=== PATIENT | female | born 1965 | race Caucasian/White ===

== ENCOUNTER 2017-01-15 01:49 | Inpatient (IN) | payer MEDICAID ==
[2017-01-15 03:53] VITALS: BP 98/55
[2017-01-15 05:10] LABS: % EOSINOPHILS 1.4 % (0.0-5.0); % LYMPHOCYTES 26.1 % (20.0-50.0); % MONOCYTES 8.5 % (2.0-10.0); HEMATOCRIT 37.7 % (35.0-45.0); HEMOGLOBIN 12.7 gm/dL (11.7-15.5); MEAN CELL VOLUME 83.8 fl (81-100); MEAN CORPUSCULAR HEMOGLOBIN 28.2 pg (27.0-31.0); MEAN CORPUSCULAR HGB CONC 33.6 pg (28.0-36.0); MEAN PLATELET VOLUME 9.2 fl; NEUTROPHILE ABSOLUTE 3.8 Th/cmm (1.8-8.0); PLATELET COUNT 177 Th/cmm (150-400); RED CELL DISTRIBUTION WIDTH 15.3 % (11.5-20.0)
[2017-01-15 07:01] LABS: ALB/GLOB RATIO 1.1 (1.0-1.8); ALKALINE PHOSPHATASE 105 U/L (34-104); ANION GAP 11.7 (7.0-16.0); BUN - UREA NITROGEN 16 mg/dL (7-25); BUN/CREATININE RATIO 14.5; CALCIUM SERUM 9.4 mg/dL (8.6-10.3); CARBON DIOXIDE 19.8 mEq/L (21.0-31.0); CHLORIDE 103 mEq/L (98-107); CREATININE - SERUM 1.1 mg/dL (0.6-1.2); DIGOXIN 0.9 ng/ml (0.8-2.0); GLUCOSE 211 mg/dL (70-105); POTASSIUM SERUM 3.5 mEq/L (3.5-5.1); SGOT 17 U/L (13-39); SGPT/ALT 14 U/L (7-52); SODIUM SERUM 131 mEq/L (136-145)
--- NOTE | 2017-01-15 17:40 | Consultation ---
DATE OF CONSULTATION: 01/15/2017 CARDIOLOGY CONSULT HISTORY OF PRESENT ILLNESS: This patient is seen on courtesy of Dr. Florinda Bruner as the patient is coming with CHF and short of breath. According to the history obtained from the patient that she was getting swelling over her both ankles, which are getting worse by the end of the day and also she was getting increasing short of breath. Usually, it will get worse over 3 days. She also started having cough when she was lying down or doing some activities, so she went to the Emergency Room. She initially went to the Emergency Room where the initial workup was done and shows that the patient is in CHF and having the cardiomyopathy. The patient is being admitted here for further management. PAST MEDICAL HISTORY: History of hypertension, diabetes mellitus, type 2, cardiomyopathy. PERSONAL HISTORY: Smoking one pack a day or more sometimes since age of 17. Alcohol socially. He smokes marijuana on every other day. She says that this is medicine marijuana for her nausea, vomiting and low appetite. ALLERGIES: CODEINE, LISINOPRIL AND MORPHINE. CARDIAC MEDICATIONS: She is on medications, but I am not sure whether she is taking all of them or not, compliance sounds very poor. She also says that she has some thyroid problem and also has history of atrial fibrillation. She has been taking some medications for that. PHYSICAL EXAMINATION: GENERAL: She is a 52-year-old female, not in any acute distress. VITAL SIGNS: Within normal range. Pulse is 91, blood pressure 120/71, mean is 87, respiration is 19, O2 sat 96%. HEENT: Normal. NECK: Supple. JVP is flat. No lymphadenopathy. Thyroid not palpable. Carotids are equally palpable bilaterally. CHEST: Clinically clear except there are some scattered rales at the bases. No rhonchi. CARDIOVASCULAR SYSTEM: PMI not palpable. Heart sounds are soft and distant. There is a holosystolic murmur is present, which is in the mitral area. No rub is appreciated. EXTREMITIES: No edema. Peripheral pulses are equal bilaterally. LABORATORY DATA: Lab work is also evaluated and showing that his CBC is normal. Chem-7, sodium is 131, glucose is 211. Hemoglobin A1c 8.5. BNP 336. Troponin 0.9. TSH is pending. Echo was showing also there is cardiomyopathy with dilated almost all the chambers, ejection fraction is low about 27%. Also, has global hypokinesia and mitral, aortic, tricuspid, and pulmonic valve regurgitation and also has moderate pulmonary hypertension. EKG, atrial fibrillation with controlled V.rate. A 12-lead EKG is not available. IMPRESSION: 1. Mild congestive heart failure, uncompensated, has systolic congestive heart failure. 2. Has global hypokinesia with ejection fraction 27%, all the chambers are dilated. Has moderate pulmonary hypertension. Mitral, aortic, tricuspid and pulmonic valve regurgitation. 3. History of drug abuse, especially marijuana, still smoking and has 33 years pack year. 4. Atrial fibrillation, chronic. PLAN: Control heart rate. I doubt any acute coronary syndrome but to be ruled out. This patient has cardiac risk factors for coronary artery disease, patient's age, female, smoking and hypertension. This patient is a candidate for AICD, but has to be free of drugs over 90 days period, therefore, the AICD could be considered for implantation. Present cardiac management is therapeutic management, okay to continue and we will get low dose of beta-hipolito. I will also get home meds to be reconciled. Further adjustment on the therapy and treatment as needed. Thank you very much Dr. Marie for your kind referral. I will follow along with you during her acute cardiac problem. JOB# [id number] AMRIK
[2017-01-15] MEDS ORDERED: Magnesium Hydroxide (MOM) 30 mL UDC PO PRN (17:57)
[2017-01-15] MEDS ORDERED: Maalox 30 mL Cup PO PRN (17:57)
[2017-01-15] MEDS: Diltiazem CD 120 mg 24H PO SCH (18:41)
--- NOTE | 2017-01-15 20:50 | History & Physical ---
ADMIT DATE: 01/15/2017 CHIEF COMPLAINT: Chest pain. HISTORY OF PRESENT ILLNESS: The patient is a 52-year-old white female, who initially presented to the ER at [facility] with complaint of chest pain, cough, dyspnea on exertion, and orthopnea for few days. The patient denies any nausea or vomiting. The patient denies other complaints. ALLERGIES: CODEINE, OPIATES, LISINOPRIL, and MORPHINE. PAST MEDICAL HISTORY: CHF, acute myocardial infarction, hypertension, and diabetes mellitus type 2. PAST SURGICAL HISTORY: x 3. SOCIAL HISTORY: Positive tobacco use. Denies alcohol use. Also smokes marijuana. REVIEW OF SYSTEMS: See history of present illness. PHYSICAL EXAMINATION: GENERAL: The patient is awake, alert, nontoxic in appearance. VITAL SIGNS: On admission, temperature 98.4, pulse 97, blood pressure 97/69, respiratory rate 12, O2 sat 98% on room air. HEENT: Normocephalic, atraumatic. Extraocular movements are intact. Oropharynx is clear. NECK: Supple. No thyromegaly. No lymphadenopathy. CARDIOVASCULAR: S1, S2. Irregular rhythm. RESPIRATORY: Clear. No wheezes or rhonchi. GASTROINTESTINAL: Soft, nontender, nondistended. Positive bowel sounds. GENITOURINARY: No CVA tenderness, no suprapubic tenderness.. BACK: No midline tenderness. EXTREMITIES: Equal pulses bilaterally. No cyanosis or clubbing. The patient 2+ pitting edema in bilateral extremities. SKIN: Negative. PSYCHIATRIC: Negative. NEUROLOGIC: Intact. Sensation is intact. Neurovascular is intact. Bilateral muscle strength grossly. LABORATORY DATA: On admission are as follows: Hematology: WBC 6.0, hemoglobin 12.7, hematocrit 37.7platelet count per labs, no left shift noted. Chemistry: Sodium 131, potassium 3.5, chloride per labs, bicarbonate 19, anion gap 11, BUN 16, creatinine 1, GFR is 55.9, glucose 211, hemoglobin A1c 8.5, calcium 9.4, total bilirubin 1.0, AST 17, ALT 14, alkaline phosphatase 105. Total protein 6.8, albumin 3.6, globulin 3.2, dig level 0.9. MICROBIOLOGY: No new microbiology results. RADIOLOGY: No new results. IMPRESSION: 1. Atrial fibrillation with rapid ventricular response. 2. Congestive heart failure. 3. History of acute myocardial infarction. 4. Hypertension. 5. Diabetes mellitus type 2. 6. Hyponatremia. 7. Hypoalbuminemia. 8. Hypothyroidism. PLAN: The patient admitted to ICU at [facility]. Cardiology consultation with Dr. Cindy Bruner. We will obtain ID consultation from Dr. Blanchard. Due for labs, consultation needed. JOB# [id number]
[2017-01-15] MEDS: INSULIN ASPART SLIDING SCALE 100 UNITS/ML UNIT SUBQ SCH (21:08)
[2017-01-15] MEDS ORDERED: Albuterol/Ipratropium Neb 3 ML AERS HHN PRN (22:34)
[2017-01-15] MEDS: guaiFENesin 200 MG/10 ML UDC PO PRN (22:45)
[2017-01-16] MEDS: guaiFENesin 200 MG/10 ML UDC PO PRN ×4 (04:18→21:54)
[2017-01-16 05:32] LABS: % BASOPHILS 0.8 % (0.0-2.0); % LYMPHOCYTES 24.8 % (20.0-50.0); % MONOCYTES 8.3 % (2.0-10.0); % NEUTROPHILS 65.1 % (40.0-80.0); HEMATOCRIT 35.6 % (35.0-45.0); MEAN CELL VOLUME 83.3 fl (81-100); MEAN CORPUSCULAR HGB CONC 33.6 pg (28.0-36.0); NEUTROPHILE ABSOLUTE 3.6 Th/cmm (1.8-8.0); PLATELET COUNT 178 Th/cmm (150-400); RED BLOOD COUNT 4.28 Mil/cmm (3.80-5.10); RED CELL DISTRIBUTION WIDTH 15.7 % (11.5-20.0); WHITE BLOOD COUNT 5.6 Th/cmm (4.8-10.8)
[2017-01-16 05:57] LABS: ANION GAP 9.3 (7.0-16.0); BUN - UREA NITROGEN 17 mg/dL (7-25); CALCIUM SERUM 9.1 mg/dL (8.6-10.3); CARBON DIOXIDE 22.8 mEq/L (21.0-31.0); CHLORIDE 103 mEq/L (98-107); GLUCOSE 171 mg/dL (70-105); POTASSIUM SERUM 4.1 mEq/L (3.5-5.1); SODIUM SERUM 131 mEq/L (136-145)
[2017-01-16] MEDS: INSULIN ASPART SLIDING SCALE 100 UNITS/ML UNIT SUBQ SCH ×4 (06:35→21:02)
[2017-01-16] MEDS: Diltiazem CD 120 mg 24H PO SCH (08:42)
[2017-01-16] MEDS: Nicotine 14 mg/24 hr Tdm TD SCH (08:45)
[2017-01-16] MEDS ORDERED: DILTIAZEM HCL 240 MG PO SCH (09:00)
--- NOTE | 2017-01-16 10:31 | Diagnostic Imaging Report ---
CHEST X-RAY: AP view INDICATION: CHF COMPARISON: None FINDINGS: Increased interstitial lung markings are noted. No focal consolidation or effusions. Cardiomegaly is noted. Degenerative changes of the spine are noted. IMPRESSION: Increased interstitial lung markings which may be chronic or represent a mild degree of congestion. No focal consolidation or evidence of pleural effusions. Cardiomegaly.
[2017-01-16] MEDS: Atorvastatin Calcium 10 MG TAB PO SCH (16:14)
[2017-01-16] MEDS: methylPREDNISolone SS 40 mg Vial IV SCH ×3 (17:44→21:12)
[2017-01-16] MEDS: Pantoprazole 40 mg/Packet PO SCH (17:44)
[2017-01-16] MEDS: Albuterol/Ipratropium Neb 3 ML AERS HHN SCH (19:06)
[2017-01-16] MEDS: Budesonide 0.5 Mg/2 mL Ud HHN SCH (19:07)
--- NOTE | 2017-01-16 23:27 | Admit Criteria Form ---
Admit Criteria Forms - Admit Criteria Diagnosis: ATRIAL FIBRILLATION Clinical Indications for Admission to Inpatient Care (Place 'X' for any and all applicable criteria): Admission indicated for ANY ONE of the following(1)(2)(3)(4)(5) : [ ]I. Myocardial ischemia [X ]II. Dyspnea or hypoxemia [ ]III. Hemodynamic instability [ ]IV. Heart failure (e.g., pulmonary edema) (7) [ ]V. New-onset (less than 48 hours) atrial fibrillation with high risk for causing complications secondary to comorbidities (eg, symptomatic heart failure) [ ]. Altered mental status [ ]VII. Syncope [ ]VIII. Patient has implantable cardioverter defibrillator that has fired more than once within past 24hr or needs immediate adjustment of settings that cannot be done other than in inpatient setting. (8) [ ]IX. Suspected accessory pathway (e.g., Lkhwk-Pbzbwimce-Swftq syndrome) on ECG [ ]X. Recent systemic thromboembolism (eg, stroke) [ ]XI. Medication toxicity (e.g., digitalis) causing arrhythmia(9) [ ]XII. Underlying medical condition that necessitates inpatient care (e.g., thyrotoxicosis, pneumonia) (10) [ ]XIII. Continuous ECG monitoring is required for condition causing arrhythmia (e.g., severe hyperkalemia, hypokalemia, acid-base disturbance).(11)(12)(13) [ ]XIV. Initiation of antiarrhythmic drug therapy is needed in patient at high risk of adverse effects as indicated by ANY ONE of the following: [ ]a) Significant structural heart disease (e.g., reduced ejection fraction, congenital heart disease, valvular heart disease) [ ]b) Prolonged QT interval [ ]c) Underlying sinus node or atrioventricular conduction disturbances [ ]d) Need for treatment with antiarrhythmic drugs that have significant proarrhythmic potential (e.g., dofetilide, sotalol, procainamide) [ ]e) Patient whose sinus rhythm has never been observed on ECG [ ]XV. Intolerable symptoms despite optimal outpatient treatment [ ]XVI. Elective or urgent cardioversion that cannot be performed on outpatient basis or during observation care. [A] (Use also Atrial Fibrillation: Observation Care ) as appropriate.(14) [ ]XVII.Contraindications and/or Inappropriate clinical situations for Observational Care in patients with Atrial Fibrillation, when ANY ONE of the following is required: [ ]a) Patient with High risk of cardiac embolism (e.g, patients with previous cardiac embolism, LVEF < 40%, age >75 and patients with prosthetic valve) 18 [ ]b) Patient with Moderate risk including DM patient, CAD and patient aged 65-75 18 [ ]c) Patient with any change in cardiac biomarker especially troponin should be managed as high risk in an inpatient setting 19 [ ]d) Physician judgement irrespective of ECG and other diagnostic findings 20 [ ]XVIII.General contraindications and/or Inappropriate clinical situations for Observational Care in patients with Atrial Fibrillation, when ANY ONE of the following is required: [ ]a) Prediction of prolongation of LOS based on ANY ONE of the following may be considered as a contraindication for observational care 2, 3, 4, 5, 6, 7, 8, 9, 10, 11 [ ]i) Age > 65 yrs. [ ]ii) Patient arriving by ambulance [ ]iii) Patient with high acuity [ ]iv) Patient requiring vital sign monitoring [ ]v) Patient on IV medication [ ]b) Systolic blood pressures 180mmHg 3,12 [ ]c) Patient with altered mental status including delirium and other alteration of consciousness3 [ ]d) Patient whose discharge disposition will be to a fci home or rehabilitation home should not be managed in Emergency Department Observation Unit. CMS rule requires 3 days hospital stay before such placement.3,13 [ ]e) Patient with failure to thrive due to broad array of etiologies 3,16,17 [ ]f) Inability to ambulate 3,14 Extended stay beyond goal length of stay may be needed for (1)(25)(26): [ ]a) Unstable comorbidities [ ]b) Persistently uncontrolled atrial fibrillation or other arrhythmias [ ]c) Acute thromboembolic event (e.g., stroke, limb ischemia) [ ]d) Need for inpatient attainment of full anticoagulation The original [employer] content created by [employer] has been revised. The portions of the content which have been revised are identified through the use of italic text or in bold, and [employer] [employer] has neither reviewed nor approved the modified material. All other unmodified content is copyright [employer] [employer]. Please see references footnoted in the original [employer] [facility] [facility] [employer] edition 2016 Admit Criteria Met?: Yes
--- NOTE | 2017-01-16 23:31 | Consultation ---
DATE OF CONSULTATION: 01/16/2017 REASON FOR CONSULTATION: Shortness of breath. CONSULT NOTE: This is a 52-year-old female who has multiple problems: 1.Congestive heart failure. 2.COPD. 3.Recurrent anxiety. 4.Substance abuse history and also has been not able to work with a history of hypertension. SYMPTOMS: The patient has got "flu-like symptoms," couple of days prior to coming to the hospital and came to the hospital, had lot of coughing, wheezing, some discolored sputum with vague chest discomfort. Subsequently, the symptoms did not improve. The patient came to the hospital. Denies of any fever or denied of any swelling of the legs, denied of any PND, orthopnea, etc. The patient is very actively smoking and also takes marijuana. PAST MEDICAL HISTORY: Hypertension, COPD and recurrent anxiety. ALLERGIES: CODEINE, lisinopril, morphine and smoking history more than [id number] smoker, still smokes 1 pack per day. Other past medical history includes hypertension, [place] and diabetes mellitus type 2. PAST SURGICAL HISTORY: Including surgical history including . PHYSICAL EXAMINATION: GENERAL: This is a middle-aged looking female, awake, alert, oriented, not in any acute distress. VITAL SIGNS: The patient's recorded vitals: Temperature is 97, heart rate is in 60s, blood pressure 95/64, saturation is in 90s on 2 liters. HEENT: Examination of the head is essentially unremarkable. Pupils appear to be equal and reacting to light. Conjunctivae are pink. Sclerae is white. Oral cavity shows small oropharyngeal opening, otherwise unremarkable. NECK: Very short. No nodes in the neck could be palpated. CHEST: Shows scattered wheezing with diminished air entry. HEART: Regular. ABDOMEN: Soft, nontender. EXTREMITIES: Shows lot of tied up ____ type of marking, poor pulsations and upper extremity shows possibly multiple areas of skin areas suggestive of possible drug abuse in the past. IMPRESSION: 1.The patient has acute asthmatic bronchitis, precipitating factor is not clear. 2.Underlying chronic obstructive pulmonary disease with active smoking. 3.Suspect obstructive sleep apnea syndrome with possibly pulmonary hypertension. PLANS AND SUGGESTIONS: Advised against smoking. Pros and cons discussed, we will go ahead and give aggressive inhalation treatment, inhale steroid. agree to with IV antibiotic and also get a 2D echo to see RVSP and ____ pressure and we will restart her diuretics six and see how she does and go from there. JOB# [id number]
[2017-01-17] MEDS: methylPREDNISolone SS 40 mg Vial IV SCH ×3 (05:50→20:46)
[2017-01-17] MEDS: INSULIN ASPART SLIDING SCALE 100 UNITS/ML UNIT SUBQ SCH ×4 (06:39→21:29)
[2017-01-17 07:18] LABS: AMPHETAMINE URINE POSITIVE (NEGATIVE); BARBITURATES URINE NEGATIVE (NEGATIVE)
[2017-01-17 07:19] LABS: METHADONE URINE NEGATIVE (NEGATIVE)
[2017-01-17 07:41] LABS: % BASOPHILS 0.2 % (0.0-2.0); % EOSINOPHILS 0.1 % (0.0-5.0); % LYMPHOCYTES 10.4 % (20.0-50.0); % MONOCYTES 0.5 % (2.0-10.0); % NEUTROPHILS 88.8 % (40.0-80.0); HEMATOCRIT 38.5 % (35.0-45.0); HEMOGLOBIN 12.6 gm/dL (11.7-15.5); MEAN CELL VOLUME 84.3 fl (81-100); MEAN CORPUSCULAR HEMOGLOBIN 27.5 pg (27.0-31.0); MEAN CORPUSCULAR HGB CONC 32.7 pg (28.0-36.0); MEAN PLATELET VOLUME 9.3 fl; NEUTROPHILE ABSOLUTE 6.1 Th/cmm (1.8-8.0); PLATELET COUNT 204 Th/cmm (150-400); RED BLOOD COUNT 4.57 Mil/cmm (3.80-5.10); RED CELL DISTRIBUTION WIDTH 15.1 % (11.5-20.0)
[2017-01-17] MEDS: Budesonide 0.5 Mg/2 mL Ud HHN SCH (07:44)
[2017-01-17] MEDS: Albuterol/Ipratropium Neb 3 ML AERS HHN SCH ×3 (07:44→15:40)
[2017-01-17 07:45] LABS: WHITE BLOOD COUNT 6.8 Th/cmm (4.8-10.8)
[2017-01-17 08:09] LABS: ALB/GLOB RATIO 1.1 (1.0-1.8); ALKALINE PHOSPHATASE 121 U/L (34-104); ANION GAP 12.2 (7.0-16.0); BILIRUBIN,DIRECT 0.27 mg/dL (0.0-0.2); BILIRUBIN,TOTAL 0.8 mg/dL (0.3-1.0); BUN - UREA NITROGEN 23 mg/dL (7-25); BUN/CREATININE RATIO 25.6; CALCIUM SERUM 9.3 mg/dL (8.6-10.3); CARBON DIOXIDE 21.8 mEq/L (21.0-31.0); CHLORIDE 104 mEq/L (98-107); CHOLESTEROL 117 mg/dL (<200); CREATININE - SERUM 0.9 mg/dL (0.6-1.2); GLUCOSE 293 mg/dL (70-105); MAGNESIUM 1.9 mg/dL (1.9-2.7); PHOSPHOROUS 4.2 mg/dL (2.5-5.0); SGOT 15 U/L (13-39); SGPT/ALT 15 U/L (7-52); SODIUM SERUM 134 mEq/L (136-145); TRIGLYCERIDES 39 mg/dL (<150); URIC ACID 5.4 mg/dL (2.3-6.6)
[2017-01-17 08:14] LABS: T3 FREE 3.8 pg/mL (2.0-4.4); T4 FREE 1.76 ng/dL (0.82-1.77)
[2017-01-17] MEDS: Atorvastatin Calcium 10 MG TAB PO SCH (08:55)
[2017-01-17] MEDS: Diltiazem CD 120 mg 24H PO SCH (08:57)
[2017-01-17] MEDS: Pantoprazole 40 mg/Packet PO SCH (08:57)
[2017-01-17] MEDS: Nicotine 14 mg/24 hr Tdm TD SCH (09:05)
[2017-01-17 09:44] LABS: T4 TOTAL 11.78 ug/dl (6.09-12.23)
[2017-01-17 09:54] LABS: T3 (TRIIDOTHYRONNE) 0.9 ng/mL (0.87-1.78)
--- NOTE | 2017-01-17 10:30 | Diagnostic Imaging Report ---
Exam: Cervical spine. HISTORY: Tracheal deviation. Findings: Multiple views of cervical spine reviewed. The study demonstrates degenerative osteoarthritic changes with narrowing of the intravertebral disc spaces and osteophytic spurring throughout. The odontoid process is intact. The posterior elements are normal. No prevertebral soft tissue swelling is noted. IMPRESSION: Osteoarthritic changes of the cervical spine, narrowing of the intravertebral disc spaces, spurring of the lower cervical vertebrae.
--- NOTE | 2017-01-17 12:58 | Diagnostic Imaging Report ---
Bilateral lower extremity DVT study HISTORY: Edema COMPARISON: None Technique: Longitudinal and transverse sonographic images of the bilateral lower extremity veins were obtained with doppler analysis. FINDINGS: There is normal compressibility, augmentation and phasicity of the bilateral common femoral, superficial femoral, popliteal, and posterior tibial veins. No thrombus is visualized. IMPRESSION: No evidence of thrombus within the bilateral lower extremity veins.
--- NOTE | 2017-01-17 13:18 | Diagnostic Imaging Report ---
Exam: Ultrasound examination deep posterior circulation lower extremities bilaterally. HISTORY: Peripheral vascular disease. Findings: Real-time ultrasound examination of the deep arterial circulation lower extremities bilaterally was performed utilizing color Doppler technique. The study demonstrates normal triphasic flow through the deep arterial circulation of the common femoral superficial femoral and popliteal arteries bilaterally with biphasic flow below trifurcation. The right ankle-brachial index 0.73 The left ankle brachial index 0.77. IMPRESSION: No significant stenosis or alteration of flow of the deep arterial circulation lower extremities bilaterally. Signed report
[2017-01-17 13:23] LABS: ABG SOURCE Arterial; BE(B) 3.5 mEq/L (-3.0-3.0); FIO2 21; HCO3 27.6 mEq/L (20.0-26.0); pH 7.49 (7.35-7.45)
--- NOTE | 2017-01-17 13:49 | Diagnostic Imaging Report ---
Thyroid ultrasound HISTORY: Weight gain COMPARISON: None Technique: Sonography of the thyroid gland was performed in multiple planes. FINDINGS: The right lobe of the thyroid gland measures 5.1 x 2.3 x 2 cm and demonstrates a markedly heterogeneous echotexture with numerous nodules noted including multiple cystic nodules the largest measuring 2 cm. Multiple solid nodules are also noted the largest measuring 1.6 cm. The thyroid isthmus is enlarged. A nodule is seen in the thyroid isthmus measuring 1.4 x 0.7 cm. The left lobe of the thyroid gland measures 5.1 x 2.3 x 2 cm and demonstrates numerous nodules including multiple cystic nodules the largest measuring 1.1 cm. A complex nodule with solid components is also seen in the superior pole measuring 1.1 cm. IMPRESSION: Extensive multinodular thyroid gland including multiple solid and cystic nodules. Please correlate with patient's clinical history and old exams, if available. Short-term follow-up surveillance ultrasound in 3-4 months is recommended. If indicated FNA of dominant solid lesions may be performed. Note that the histology of thyroid nodules cannot be determined sonographically.
--- NOTE | 2017-01-17 20:35 | Progress Notes ---
DATE: 01/17/2017 PULMONARY PROGRESS NOTE PROBLEM LIST: 1. Acute exacerbation of chronic obstructive pulmonary disease, otherwise unremarkable. 2. Tobacco dependence, history of chronic depression, history of suspect obstructive sleep apnea syndrome. SYMPTOMS: Nil, feeling okay. No specific new symptoms. PHYSICAL EXAMINATION: VITAL SIGNS: On exam, recorded vitals: Afebrile, heart rate is 80s, blood pressure 146/85. NECK: Veins not visualized. CHEST: Shows clear with diminished air entry. HEART: Regular. LABORATORY DATA: The patient's pCO2 was 35, pO2 is 74 on room air. Electrolytes are okay. ASSESSMENT: The patient clinically better with acute exacerbation of chronic obstructive pulmonary disease. PLANS AND SUGGESTIONS: We will go ahead and continue current treatment and go from there. JOB# [id number]
--- NOTE | 2017-01-17 20:59 | General Progress Note ---
Subjective - Review of Systems Service Date: 01/16/17 Subjective: Patient is still in ICU. Patient complains of shortness of breath. Objective - Results Result Diagrams: 01/17/17 07:05 01/17/17 07:05 Recent Labs: Laboratory Last Values WBC 6.8 Th/cmm (4.8-10.8) D 01/17/17 07:05 RBC 4.57 Mil/cmm (3.80-5.10) 01/17/17 07:05 Hgb 12.6 gm/dL (11.7-15.5) 01/17/17 07:05 Hct 38.5 % (35.0-45.0) 01/17/17 07:05 MCV 84.3 fl (81-100) 01/17/17 07:05 MCH 27.5 pg (27.0-31.0) 01/17/17 07:05 MCHC Differential 32.7 pg (28.0-36.0) 01/17/17 07:05 RDW 15.1 % (11.5-20.0) 01/17/17 07:05 Plt Count 204 Th/cmm (150-400) 01/17/17 07:05 MPV 9.3 fl 01/17/17 07:05 Neutrophils % 88.8 % (40.0-80.0) H 01/17/17 07:05 Lymphocytes % 10.4 % (20.0-50.0) L 01/17/17 07:05 Monocytes % 0.5 % (2.0-10.0) L 01/17/17 07:05 Eosinophils % 0.1 % (0.0-5.0) 01/17/17 07:05 Basophils % 0.2 % (0.0-2.0) 01/17/17 07:05 Specimen Source Arterial 01/17/17 13:09 Sample Site RB 01/17/17 13:09 pH 7.49 (7.35-7.45) H 01/17/17 13:09 pCO2 35.0 mmHg (35.0-45.0) 01/17/17 13:09 pO2 74.0 mmHg (80.0-100.0) L 01/17/17 13:09 HCO3 27.6 mEq/L (20.0-26.0) H 01/17/17 13:09 Base Excess 3.5 mEq/L (-3.0-3.0) H 01/17/17 13:09 O2 Saturation 96.0 % (92.0-100.0) 01/17/17 13:09 Johnathan Test NA 01/17/17 13:09 Vent Rate NA 01/17/17 13:09 Inspired O2 21 01/17/17 13:09 Tidal Volume NA 01/17/17 13:09 PEEP NA 01/17/17 13:09 Pressure (ins/psv/peep) NA 01/17/17 13:09 Critical Value LZHANG 01/17/17 13:09 Sodium 134 mEq/L (136-145) L 01/17/17 07:05 Potassium 4.0 mEq/L (3.5-5.1) 01/17/17 07:05 Chloride 104 mEq/L (98-107) 01/17/17 07:05 Carbon Dioxide 21.8 mEq/L (21.0-31.0) 01/17/17 07:05 Anion Gap 12.2 (7.0-16.0) 01/17/17 07:05 BUN 23 mg/dL (7-25) 01/17/17 07:05 Creatinine 0.9 mg/dL (0.6-1.2) 01/17/17 07:05 Est GFR ( Amer) > 60.0 ml/min (>90) 01/17/17 07:05 Est GFR (Non-Af Amer) > 60.0 ml/min 01/17/17 07:05 BUN/Creatinine Ratio 25.6 01/17/17 07:05 Glucose 293 mg/dL (70-105) H 01/17/17 07:05 POC Glucose 322 MG/DL (70 - 105) H 01/17/17 17:22 Hemoglobin A1c % 8.5 % (4.0-6.0) H 01/15/17 04:45 Uric Acid 5.4 mg/dL (2.3-6.6) 01/17/17 07:05 Calcium 9.3 mg/dL (8.6-10.3) 01/17/17 07:05 Phosphorus 4.2 mg/dL (2.5-5.0) 01/17/17 07:05 Magnesium 1.9 mg/dL (1.9-2.7) 01/17/17 07:05 Total Bilirubin 0.8 mg/dL (0.3-1.0) 01/17/17 07:05 Direct Bilirubin 0.27 mg/dL (0.0-0.2) H 01/17/17 07:05 AST 15 U/L (13-39) 01/17/17 07:05 ALT 15 U/L (7-52) 01/17/17 07:05 Alkaline Phosphatase 121 U/L (34-104) H 01/17/17 07:05 Ammonia 56 umol/L (16-53) H 01/17/17 07:05 Troponin I 0.02 ng/mL (0.01-0.05) 01/15/17 18:58 B-Natriuretic Peptide 478.0 pg/mL (5.0-100.0) H 01/16/17 05:17 Total Protein 6.7 gm/dL (6.0-8.3) 01/17/17 07:05 Albumin 3.5 gm/dL (3.7-5.3) L 01/17/17 07:05 Globulin 3.2 gm/dL 01/17/17 07:05 Albumin/Globulin Ratio 1.1 (1.0-1.8) 01/17/17 07:05 Triglycerides 39 mg/dL (<150) 01/17/17 07:05 Cholesterol 117 mg/dL (<200) 01/17/17 07:05 LDL Cholesterol Direct 62 mg/dL (75-193) L 01/17/17 07:05 HDL Cholesterol 55 mg/dL (23-92) 01/17/17 07:05 Free T4 1.76 ng/dL (0.82-1.77) 01/16/17 08:19 Thyroxine (T4) 11.78 ug/dl (6.09-12.23) 01/17/17 07:05 Free T3 3.8 pg/mL (2.0-4.4) 01/16/17 08:19 Reverse T3 0.90 ng/mL (0.87-1.78) 01/17/17 07:05 TSH 0.01 uIU/ml (0.34-5.60) L 01/15/17 18:58 Serum , Qual NEGATIVE (NEGATIVE) 01/15/17 18:58 Digoxin 0.9 ng/ml (0.8-2.0) 01/15/17 04:45 Urine Opiates Screen NEGATIVE (NEGATIVE) 01/17/17 06:40 Urine Methadone Screen NEGATIVE (NEGATIVE) 01/17/17 06:40 Ur Barbiturates Screen NEGATIVE (NEGATIVE) 01/17/17 06:40 Ur Tricyclics Screen NEGATIVE (NEGATIVE) 01/17/17 06:40 Ur Phencyclidine Scrn NEGATIVE (NEGATIVE) 01/17/17 06:40 Amphetamines Screen POSITIVE (NEGATIVE) H 01/17/17 06:40 U Methamphetamines Scrn POSITIVE (NEGATIVE) H 01/17/17 06:40 U Benzodiazepines Scrn POSITIVE (NEGATIVE) H 01/17/17 06:40 U Cocaine Metab Screen NEGATIVE (NEGATIVE) 01/17/17 06:40 U Cannabinoids Screen POSITIVE (NEGATIVE) H 01/17/17 06:40 - Physical Exam Vitals and I&O: Vital Signs Temp 98.8 F 01/17/17 20:00 Pulse 103 01/17/17 20:00 Resp 18 01/17/17 20:00 BP 107/73 01/17/17 20:00 Pulse Ox 96 01/17/17 20:00 Intake & Output 01/17/17 01/17/17 01/18/17 06:59 18:59 06:59 Intake Total 480 1200 Output Total 1200 Balance -720 1200 Weight (lbs) 84.17 kg 83.915 kg Intake: Oral 480 1200 Output: Urine 1200 Other: # Voids 3 Stool Characteristics Formed Active Medications: Current Medications Acetaminophen (Tylenol) 650 mg PO Q6H PRN PRN Reason: Mild Pain/Headache/T above 101 Stop: 03/16/17 17:56 Al Hydrox/Mg Hydrox/Simethicone (Maalox) 30 ml PO Q6H PRN PRN Reason: Dyspepsia Stop: 03/16/17 17:56 Albuterol/Ipratropium (Duoneb Neb) 3 ml HHN [id number] [facility] Stop: 03/17/17 18:59 Last Admin: 01/17/17 15:40 Dose: Not Given Atorvastatin Calcium (Lipitor) 20 mg PO DAILY [facility] PRN Reason: Protocol Stop: 03/17/17 12:59 Last Admin: 01/17/17 08:55 Dose: 20 mg Azithromycin (Zithromax) 500 mg PO DAILY [facility] Stop: 03/17/17 16:29 Last Admin: 01/17/17 08:55 Dose: 500 mg Budesonide (Pulmicort) 0.5 mg HHN BIDRT [facility] Stop: 03/17/17 18:59 Last Admin: 01/17/17 07:44 Dose: Not Given Carvedilol (Coreg) 6.25 mg PO BID [facility] Stop: 03/16/17 16:59 Last Admin: 01/17/17 18:02 Dose: 6.25 mg Clopidogrel Bisulfate (Plavix) 75 mg PO DAILY [facility] Stop: 03/16/17 16:29 Last Admin: 01/17/17 08:55 Dose: 75 mg Diltiazem HCl (Cardizem Cd) 240 mg PO DAILY [facility] Stop: 03/16/17 18:29 Last Admin: 01/17/17 08:57 Dose: 240 mg Furosemide (Lasix) 20 mg PO DAILY [facility] Stop: 03/17/17 08:59 Last Admin: 01/17/17 08:56 Dose: 20 mg Guaifenesin (Robitussin) 200 mg PO Q4HR PRN PRN Reason: Cough or Congestion Stop: 03/16/17 22:32 Last Admin: 01/16/17 21:54 Dose: 200 mg Ceftriaxone Sodium 1 gm/ (Dextrose) 50 mls @ 100 mls/hr IV Q24H [facility] Stop: 03/17/17 16:29 Last Admin: 01/17/17 17:24 Dose: 100 mls/hr Insulin Aspart (Novolog Insulin Sliding Scale) 0 units SUBQ ACHS [facility] PRN Reason: Protocol Stop: 03/16/17 20:59 Last Admin: 01/17/17 18:01 Dose: 9 units Lorazepam (Ativan) 1 mg IVP Q4HR PRN; Protocol PRN Reason: Anxiety Stop: 03/16/17 04:05 Last Admin: 01/15/17 22:45 Dose: 1 mg Losartan Potassium (Cozaar) 25 mg PO DAILY [facility] Stop: 03/17/17 08:59 Last Admin: 01/17/17 08:57 Dose: 25 mg Magnesium Hydroxide (Milk Of Magnesia) 30 ml PO HS PRN PRN Reason: Constipation Stop: 03/16/17 17:56 Methimazole (Tapazole) 15 mg PO HS [facility] Stop: 03/16/17 20:59 Last Admin: 01/17/17 20:45 Dose: 15 mg Methylprednisolone Sodium Succinate (Solu-Medrol) 40 mg IV Q8HR [facility] Stop: 01/18/17 05:01 Last Admin: 01/17/17 20:46 Dose: 40 mg Nicotine (Nicotine Transdermal System) 14 mg TD DAILY [facility] Stop: 03/17/17 08:59 Last Admin: 01/17/17 09:05 Dose: Not Given Ondansetron HCl (Zofran Odt) 4 mg PO Q6H PRN PRN Reason: Nausea / Vomiting Stop: 03/16/17 17:56 Pantoprazole Sodium (Protonix) 40 mg PO DAILY [facility] Stop: 03/17/17 16:29 Last Admin: 01/17/17 08:57 Dose: 40 mg Sodium Chloride (Saline Flush) 10 ml IV QSHIFT [facility] Stop: 03/16/17 19:59 Last Admin: 01/17/17 09:00 Dose: 10 ml General: Alert, Oriented x3, No acute distress HEENT: Atraumatic, PERRLA, EOMI, Mucous membr. moist/pink Neck: Supple, +2 carotid pulse wo bruit Cardiovascular: Other (Irregular irregular) Lungs: Other (Rales) Abdomen: Bowel sounds, Soft Extremities: Edema Neurological: Normal gait, Normal speech, Strength at 5/5 X4 ext, Normal tone, Sensation intact, Cranial nerves 3-12 NL, Reflexes 2+ Psych/Mental Status: Mental status NL, Mood NL Assessment/Plan - Assessment Assessment: Atrial Fibrillation Hypertension CHF DM Hyperthyroidism Respiratory Distress - Plan Plan: Continue current medications Obtain labs in am Transfer to Tele Further per consults Nutritional Asmnt/Malnutr-PDOC - Dietary Evaluation Malnutrition Findings (Please click <Entered> for more info): Nutritional Asmnt/Malnutrition Start: 01/15/17 14: 34 Text: Status: Complete Freq: Document 01/15/17 14:34 GSUN (Rec: 01/15/17 14:52 [email or web address] [id number]) Nutritional Asmnt/Malnutrition Patient General Information Nutritional Screening Consult Diagnosis Reason for visit: chest pain Pertinent Medical Hx/Surgical Hx No report at this time. Dx DM noted in RN notes. Subjective Information 52 [address] consult for BG >180. Limited interview due to ultrasound during visit. Pt was alert and pleasant. Pt noted with good appetite, was hungry at 11am, had lunch 12:30pm, asked for sandwich at 2:30pm. Pt expressed excitement for food, FNS noted of pt's food preferences. Pt reported UBW 160lb prior to "getting sick," suspected weight gain. No wasting noted. Current Diet Order/ Nutrition Support Cardiac, diabetic Pertinent Medications No pertinent medications at this time. Pertinent Labs 01/15: glucose 211H, A1c 8.5H Nutritional Hx/Data Height 1.7 m Height (Calculated Centimeters) 170.2 Current Weight (lbs) 83.189 kg Weight (Calculated Kilograms) 83.2 Weight (Calculated Grams) 51429.8 Usual body Weight (lbs) 160 [place] Body Weight 135 Weight Status Overweight GI Symptoms Skin Integrity/Comment: Jayesh 18. General bruise/rash Current %PO Good (75-100%) Estimated Nutritional Goals Calories/Kcals/Kg IBW 135lb/61.4kg Kcals Calculated 1535-1842kcal (25-30kcal/kg) Protein Calculated 61g (1g/kg) Fluid: ml 1535-1842ml (1ml/kcal) Nutritional Problem 1. Problem Problem Altered nutrition related laboratory values related to Etiology DM aeb Signs/Symptoms: A1c 8.5H, glucose 211H on adm Intervention/Recommendation Comments 1. Recommend cardiact [id number] . Briefly explained [facility] diet, pt is agreeable to plan, pt has no questions at this time. 2. Provide DM nutrition edu as able. Expected Outcomes/Goals Expected Outcomes/Goals 1. PO intake to meet at least 75% of estimated nutritional needs.
--- NOTE | 2017-01-17 21:07 | General Progress Note ---
Subjective - Review of Systems Service Date: 01/17/17 Subjective: Patient transferred to [facility]. Undergoing radiological tests ordered by Endocrinology. Informed patient is homeless.. Objective - Results Result Diagrams: 01/17/17 07:05 01/17/17 07:05 Recent Labs: Laboratory Last Values WBC 6.8 Th/cmm (4.8-10.8) D 01/17/17 07:05 RBC 4.57 Mil/cmm (3.80-5.10) 01/17/17 07:05 Hgb 12.6 gm/dL (11.7-15.5) 01/17/17 07:05 Hct 38.5 % (35.0-45.0) 01/17/17 07:05 MCV 84.3 fl (81-100) 01/17/17 07:05 MCH 27.5 pg (27.0-31.0) 01/17/17 07:05 MCHC Differential 32.7 pg (28.0-36.0) 01/17/17 07:05 RDW 15.1 % (11.5-20.0) 01/17/17 07:05 Plt Count 204 Th/cmm (150-400) 01/17/17 07:05 MPV 9.3 fl 01/17/17 07:05 Neutrophils % 88.8 % (40.0-80.0) H 01/17/17 07:05 Lymphocytes % 10.4 % (20.0-50.0) L 01/17/17 07:05 Monocytes % 0.5 % (2.0-10.0) L 01/17/17 07:05 Eosinophils % 0.1 % (0.0-5.0) 01/17/17 07:05 Basophils % 0.2 % (0.0-2.0) 01/17/17 07:05 Specimen Source Arterial 01/17/17 13:09 Sample Site RB 01/17/17 13:09 pH 7.49 (7.35-7.45) H 01/17/17 13:09 pCO2 35.0 mmHg (35.0-45.0) 01/17/17 13:09 pO2 74.0 mmHg (80.0-100.0) L 01/17/17 13:09 HCO3 27.6 mEq/L (20.0-26.0) H 01/17/17 13:09 Base Excess 3.5 mEq/L (-3.0-3.0) H 01/17/17 13:09 O2 Saturation 96.0 % (92.0-100.0) 01/17/17 13:09 Johnathan Test NA 01/17/17 13:09 Vent Rate NA 01/17/17 13:09 Inspired O2 21 01/17/17 13:09 Tidal Volume NA 01/17/17 13:09 PEEP NA 01/17/17 13:09 Pressure (ins/psv/peep) NA 01/17/17 13:09 Critical Value LZHANG 01/17/17 13:09 Sodium 134 mEq/L (136-145) L 01/17/17 07:05 Potassium 4.0 mEq/L (3.5-5.1) 01/17/17 07:05 Chloride 104 mEq/L (98-107) 01/17/17 07:05 Carbon Dioxide 21.8 mEq/L (21.0-31.0) 01/17/17 07:05 Anion Gap 12.2 (7.0-16.0) 01/17/17 07:05 BUN 23 mg/dL (7-25) 01/17/17 07:05 Creatinine 0.9 mg/dL (0.6-1.2) 01/17/17 07:05 Est GFR ( Amer) > 60.0 ml/min (>90) 01/17/17 07:05 Est GFR (Non-Af Amer) > 60.0 ml/min 01/17/17 07:05 BUN/Creatinine Ratio 25.6 01/17/17 07:05 Glucose 293 mg/dL (70-105) H 01/17/17 07:05 POC Glucose 335 MG/DL (70 - 105) H 01/17/17 20:55 Hemoglobin A1c % 8.5 % (4.0-6.0) H 01/15/17 04:45 Uric Acid 5.4 mg/dL (2.3-6.6) 01/17/17 07:05 Calcium 9.3 mg/dL (8.6-10.3) 01/17/17 07:05 Phosphorus 4.2 mg/dL (2.5-5.0) 01/17/17 07:05 Magnesium 1.9 mg/dL (1.9-2.7) 01/17/17 07:05 Total Bilirubin 0.8 mg/dL (0.3-1.0) 01/17/17 07:05 Direct Bilirubin 0.27 mg/dL (0.0-0.2) H 01/17/17 07:05 AST 15 U/L (13-39) 01/17/17 07:05 ALT 15 U/L (7-52) 01/17/17 07:05 Alkaline Phosphatase 121 U/L (34-104) H 01/17/17 07:05 Ammonia 56 umol/L (16-53) H 01/17/17 07:05 Troponin I 0.02 ng/mL (0.01-0.05) 01/15/17 18:58 B-Natriuretic Peptide 478.0 pg/mL (5.0-100.0) H 01/16/17 05:17 Total Protein 6.7 gm/dL (6.0-8.3) 01/17/17 07:05 Albumin 3.5 gm/dL (3.7-5.3) L 01/17/17 07:05 Globulin 3.2 gm/dL 01/17/17 07:05 Albumin/Globulin Ratio 1.1 (1.0-1.8) 01/17/17 07:05 Triglycerides 39 mg/dL (<150) 01/17/17 07:05 Cholesterol 117 mg/dL (<200) 01/17/17 07:05 LDL Cholesterol Direct 62 mg/dL (75-193) L 01/17/17 07:05 HDL Cholesterol 55 mg/dL (23-92) 01/17/17 07:05 Free T4 1.76 ng/dL (0.82-1.77) 01/16/17 08:19 Thyroxine (T4) 11.78 ug/dl (6.09-12.23) 01/17/17 07:05 Free T3 3.8 pg/mL (2.0-4.4) 01/16/17 08:19 Reverse T3 0.90 ng/mL (0.87-1.78) 01/17/17 07:05 TSH 0.01 uIU/ml (0.34-5.60) L 01/15/17 18:58 Serum , Qual NEGATIVE (NEGATIVE) 01/15/17 18:58 Digoxin 0.9 ng/ml (0.8-2.0) 01/15/17 04:45 Urine Opiates Screen NEGATIVE (NEGATIVE) 01/17/17 06:40 Urine Methadone Screen NEGATIVE (NEGATIVE) 01/17/17 06:40 Ur Barbiturates Screen NEGATIVE (NEGATIVE) 01/17/17 06:40 Ur Tricyclics Screen NEGATIVE (NEGATIVE) 01/17/17 06:40 Ur Phencyclidine Scrn NEGATIVE (NEGATIVE) 01/17/17 06:40 Amphetamines Screen POSITIVE (NEGATIVE) H 01/17/17 06:40 U Methamphetamines Scrn POSITIVE (NEGATIVE) H 01/17/17 06:40 U Benzodiazepines Scrn POSITIVE (NEGATIVE) H 01/17/17 06:40 U Cocaine Metab Screen NEGATIVE (NEGATIVE) 01/17/17 06:40 U Cannabinoids Screen POSITIVE (NEGATIVE) H 01/17/17 06:40 - Physical Exam Vitals and I&O: Vital Signs Temp 98.8 F 01/17/17 20:00 Pulse 103 01/17/17 20:00 Resp 18 01/17/17 20:00 BP 107/73 01/17/17 20:00 Pulse Ox 96 01/17/17 20:00 Intake & Output 01/17/17 01/17/17 01/18/17 06:59 18:59 06:59 Intake Total 480 1200 Output Total 1200 Balance -720 1200 Weight (lbs) 84.17 kg 83.915 kg Intake: Oral 480 1200 Output: Urine 1200 Other: # Voids 3 Stool Characteristics Formed Active Medications: Current Medications Acetaminophen (Tylenol) 650 mg PO Q6H PRN PRN Reason: Mild Pain/Headache/T above 101 Stop: 03/16/17 17:56 Al Hydrox/Mg Hydrox/Simethicone (Maalox) 30 ml PO Q6H PRN PRN Reason: Dyspepsia Stop: 03/16/17 17:56 Albuterol/Ipratropium (Duoneb Neb) 3 ml HHN [id number] [facility] Stop: 03/17/17 18:59 Last Admin: 01/17/17 15:40 Dose: Not Given Atorvastatin Calcium (Lipitor) 20 mg PO DAILY [facility] PRN Reason: Protocol Stop: 03/17/17 12:59 Last Admin: 01/17/17 08:55 Dose: 20 mg Azithromycin (Zithromax) 500 mg PO DAILY [facility] Stop: 03/17/17 16:29 Last Admin: 01/17/17 08:55 Dose: 500 mg Budesonide (Pulmicort) 0.5 mg HHN BIDRT [facility] Stop: 03/17/17 18:59 Last Admin: 01/17/17 07:44 Dose: Not Given Carvedilol (Coreg) 6.25 mg PO BID [facility] Stop: 03/16/17 16:59 Last Admin: 01/17/17 18:02 Dose: 6.25 mg Clopidogrel Bisulfate (Plavix) 75 mg PO DAILY [facility] Stop: 03/16/17 16:29 Last Admin: 01/17/17 08:55 Dose: 75 mg Diltiazem HCl (Cardizem Cd) 240 mg PO DAILY [facility] Stop: 03/16/17 18:29 Last Admin: 01/17/17 08:57 Dose: 240 mg Furosemide (Lasix) 20 mg PO DAILY [facility] Stop: 03/17/17 08:59 Last Admin: 01/17/17 08:56 Dose: 20 mg Guaifenesin (Robitussin) 200 mg PO Q4HR PRN PRN Reason: Cough or Congestion Stop: 03/16/17 22:32 Last Admin: 01/16/17 21:54 Dose: 200 mg Ceftriaxone Sodium 1 gm/ (Dextrose) 50 mls @ 100 mls/hr IV Q24H [facility] Stop: 03/17/17 16:29 Last Admin: 01/17/17 17:24 Dose: 100 mls/hr Insulin Aspart (Novolog Insulin Sliding Scale) 0 units SUBQ ACHS [facility] PRN Reason: Protocol Stop: 03/16/17 20:59 Last Admin: 01/17/17 18:01 Dose: 9 units Lorazepam (Ativan) 1 mg IVP Q4HR PRN; Protocol PRN Reason: Anxiety Stop: 03/16/17 04:05 Last Admin: 01/15/17 22:45 Dose: 1 mg Losartan Potassium (Cozaar) 25 mg PO DAILY [facility] Stop: 03/17/17 08:59 Last Admin: 01/17/17 08:57 Dose: 25 mg Magnesium Hydroxide (Milk Of Magnesia) 30 ml PO HS PRN PRN Reason: Constipation Stop: 03/16/17 17:56 Methimazole (Tapazole) 15 mg PO HS [facility] Stop: 03/16/17 20:59 Last Admin: 01/17/17 20:45 Dose: 15 mg Methylprednisolone Sodium Succinate (Solu-Medrol) 40 mg IV Q8HR [facility] Stop: 01/18/17 05:01 Last Admin: 01/17/17 20:46 Dose: 40 mg Nicotine (Nicotine Transdermal System) 14 mg TD DAILY [facility] Stop: 03/17/17 08:59 Last Admin: 01/17/17 09:05 Dose: Not Given Ondansetron HCl (Zofran Odt) 4 mg PO Q6H PRN PRN Reason: Nausea / Vomiting Stop: 03/16/17 17:56 Pantoprazole Sodium (Protonix) 40 mg PO DAILY [facility] Stop: 03/17/17 16:29 Last Admin: 01/17/17 08:57 Dose: 40 mg Sodium Chloride (Saline Flush) 10 ml IV QSHIFT [facility] Stop: 03/16/17 19:59 Last Admin: 01/17/17 09:00 Dose: 10 ml General: Alert, Oriented x3, No acute distress HEENT: Atraumatic, PERRLA, EOMI, Mucous membr. moist/pink Neck: Supple, +2 carotid pulse wo bruit Cardiovascular: Other (Irregular irregular) Lungs: Other (Rales) Abdomen: Bowel sounds, Soft Extremities: Edema Neurological: Normal gait, Normal speech, Strength at 5/5 X4 ext, Normal tone, Sensation intact, Cranial nerves 3-12 NL, Reflexes 2+ Psych/Mental Status: Mental status NL, Mood NL Assessment/Plan - Assessment Assessment: Atrial Fibrillation Hypertension CHF DM Hyperthyroidism - Plan Plan: Continue current medications Obtain labs in am Awaiting ultrasound results Further per consults Nutritional Asmnt/Malnutr-PDOC - Dietary Evaluation Malnutrition Findings (Please click <Entered> for more info): Nutritional Asmnt/Malnutrition Start: 01/15/17 14: 34 Text: Status: Complete Freq: Document 01/15/17 14:34 GSUN (Rec: 01/15/17 14:52 GSUN [id number]) Nutritional Asmnt/Malnutrition Patient General Information Nutritional Screening Consult Diagnosis Reason for visit: chest pain Pertinent Medical Hx/Surgical Hx No report at this time. Dx DM noted in RN notes. Subjective Information 52 [address] consult for BG >180. Limited interview due to ultrasound during visit. Pt was alert and pleasant. Pt noted with good appetite, was hungry at 11am, had lunch 12:30pm, asked for sandwich at 2:30pm. Pt expressed excitement for food, FNS noted of pt's food preferences. Pt reported UBW 160lb prior to "getting sick," suspected weight gain. No wasting noted. Current Diet Order/ Nutrition Support Cardiac, diabetic Pertinent Medications No pertinent medications at this time. Pertinent Labs 01/15: glucose 211H, A1c 8.5H Nutritional Hx/Data Height 1.7 m Height (Calculated Centimeters) 170.2 Current Weight (lbs) 83.189 kg Weight (Calculated Kilograms) 83.2 Weight (Calculated Grams) 69425.8 Usual body Weight (lbs) 160 [place] Body Weight 135 Weight Status Overweight GI Symptoms Skin Integrity/Comment: Jayesh 18. General bruise/rash Current %PO Good (75-100%) Estimated Nutritional Goals Calories/Kcals/Kg IBW 135lb/61.4kg Kcals Calculated 1535-1842kcal (25-30kcal/kg) Protein Calculated 61g (1g/kg) Fluid: ml 1535-1842ml (1ml/kcal) Nutritional Problem 1. Problem Problem Altered nutrition related laboratory values related to Etiology DM aeb Signs/Symptoms: A1c 8.5H, glucose 211H on adm Intervention/Recommendation Comments 1. Recommend cardiact [id number] . Briefly explained [facility] [place] diet, pt is agreeable to plan, pt has no questions at this time. 2. Provide DM nutrition edu as able. Expected Outcomes/Goals Expected Outcomes/Goals 1. PO intake to meet at least 75% of estimated nutritional needs.
[2017-01-18] MEDS: guaiFENesin 200 MG/10 ML UDC PO PRN ×2 (06:45→11:35)
[2017-01-18] MEDS: INSULIN ASPART SLIDING SCALE 100 UNITS/ML UNIT SUBQ SCH ×4 (06:49→18:04)
[2017-01-18] MEDS ORDERED: INSULIN 70/30 100 UNITS/ML SUBQ SCH ×2 (07:30→17:00)
[2017-01-18] MEDS: methylPREDNISolone SS 40 mg Vial IV SCH (07:33)
[2017-01-18] MEDS: Albuterol/Ipratropium Neb 3 ML AERS HHN SCH ×2 (07:38→12:07)
[2017-01-18] MEDS: Budesonide 0.5 Mg/2 mL Ud HHN SCH (07:38)
[2017-01-18 07:41] LABS: HEMATOCRIT 36.5 % (35.0-45.0); HEMOGLOBIN 11.9 gm/dL (11.7-15.5); MEAN CELL VOLUME 84.3 fl (81-100); MEAN CORPUSCULAR HEMOGLOBIN 27.6 pg (27.0-31.0); MEAN CORPUSCULAR HGB CONC 32.7 pg (28.0-36.0); MEAN PLATELET VOLUME 9.5 fl; PLATELET COUNT 239 Th/cmm (150-400); RED BLOOD COUNT 4.33 Mil/cmm (3.80-5.10); RED CELL DISTRIBUTION WIDTH 15.4 % (11.5-20.0)
[2017-01-18 07:42] LABS: WHITE BLOOD COUNT 11.7 Th/cmm (4.8-10.8)
[2017-01-18 07:45] LABS: ANION GAP 11.4 (7.0-16.0); BUN - UREA NITROGEN 33 mg/dL (7-25); CALCIUM SERUM 9.3 mg/dL (8.6-10.3); CARBON DIOXIDE 22.9 mEq/L (21.0-31.0); CHLORIDE 104 mEq/L (98-107); CREATININE - SERUM 1.1 mg/dL (0.6-1.2); GLUCOSE 381 mg/dL (70-105); POTASSIUM SERUM 4.3 mEq/L (3.5-5.1); SODIUM SERUM 134 mEq/L (136-145)
[2017-01-18] MEDS: Atorvastatin Calcium 10 MG TAB PO SCH (08:24)
[2017-01-18] MEDS: Diltiazem CD 120 mg 24H PO SCH (08:25)
[2017-01-18 09:14] LABS: BAND NEUTROPHILE 2 % (0-10); NEUTROPHILS 92 % (40-80); PLATELET ESTIMATE ADEQUATE (NORMAL); TOTAL CELLS COUNTED 100
[2017-01-18 09:15] LABS: PLATELET MORPHOLOGY NORMAL (NORMAL)
[2017-01-18] MEDS: Nicotine 14 mg/24 hr Tdm TD SCH (12:27)
[2017-01-18] MEDS: Pantoprazole 40 mg/Packet PO SCH (12:28)
--- NOTE | 2017-01-18 13:20 | Diagnostic Imaging Report ---
Ultrasound-guided FNA of thyroid nodules History: Multinodular thyroid gland. Decreased TSH levels history of thyroid cancer Comparison: Ultrasound thyroid on 01/17/2017 Technique/procedure: Informed consent was obtained and multiple images were obtained. Using ultrasound guidance, 4 FNA samples of dominant solid and cystic nodule of the right lobe and 3 samples of dominant solid cystic nodule of the left lobe was performed and handed to pathology for analysis. The patient tolerated the procedure with no immediate complications. 5 mL the 1% lidocaine was utilized for local anesthetic. Estimated blood loss was minimal. IMPRESSION: Successful ultrasound-guided thyroid FNA of bilateral dominant thyroid nodules as above.
--- NOTE | 2017-01-18 21:33 | Progress Notes ---
DATE: 01/18/2017 PROBLEM LIST: 1. Acute exacerbation of chronic obstructive pulmonary disease. 2. Possibly opioid dependency. 3. Obstructive sleep apnea syndrome. SYMPTOMS: Nil, feels nauseated, had some thyroid biopsy today, coughing is very minimal. PHYSICAL EXAMINATION: VITAL SIGNS: Temperature is 98.6, saturation 97 on room air. NECK: Veins not visualized. CHEST: Shows much clear. HEART: Regular. ABDOMEN: Soft, nontender. LABORATORY DATA: White count is 11.7, hemoglobin 11.9. ASSESSMENT: The patient respiratory-bauer is doing okay. We will switch to oral medication. It is okay to discharge when ready by the primary and other issues and go from there. JOB# [id number]
--- NOTE | 2017-01-19 06:34 | Progress Notes ---
DATE: 01/18/2017 SUBJECTIVE: The patient is awake and alert. The patient underwent biopsy of the thyroid. OBJECTIVE: VITAL SIGNS: Temperature 98.3, pulse 58, blood pressure 126/69, respirations 19, O2 98% on room air. CARDIAC: S1 and S2. RESPIRATORY: Clear. GASTROINTESTINAL: Soft. Bowel sounds positive. LABORATORY DATA: WBC per labs hemoglobin per labs, hematocrit per labs, platelet count of 249. Chemistries; sodium 134, potassium per labs, GFR is 55. Glucose is 381. Calcium is 9.3. MICROBIOLOGY: MRSA screening positive ASSESSMENT: 1. Atrial fibrillation. 2. Hypertension. 3. Congestive heart failure. 4. MRSA colonization. 5. Hypothyroidism. PLAN: Continue current medication and treatment. manager general for discharge planning. JOB# [id number]
--- NOTE | 2017-01-19 14:35 | Pathology Report ---
[id number] Collection Date: 01/18/2017 Surgeon: Dr. Nasima Parsons Specimen Description: 1. Right thyroid needle aspiration biopsy. 2. Left thyroid needle aspiration biopsy. Gross Description: Part I: Received in formalin within four small biopsy containers are multiple tiny fragments of blood clot admixed with several tiny specks of possible tissue measuring less than 1 millimeter. The entire specimen is sent for cytology processing. Gross Description: Part II: Received in formalin within three small biopsy containers is a scanty specimen consisting of several tiny fragments of blood clot admixed with several specks of possible tissue measuring less than 1 millimeter. The entire specimen is sent for cytology processing. Microscopic Description: Part I: Examination of two cytospins and one cell block shows scanty specimen cellularity consisting of 6 clusters of thyroid follicular epithelium admixed with blood and small numbers of inflammatory cells. The thyroid epithelial cells form cohesive clusters of follicles with no evidence for atypia. Diagnosis: Part I: No cytologic evidence for malignancy, right thyroid needle aspiration biopsy. Microscopic Description: Part II: Examination of two cytospins and one cell block shows very scanty specimen cellularity consisting of blood admixed with inflammatory cells that consist of mostly neutrophils. Only rare follicular epithelial cells are identified (less than 6 clusters). Diagnosis: Part II: Insufficient cellularity for evaluation (left thyroid needle aspiration biopsy). Comment: Cytologic evaluation is limited by the scanty cellularity seen in both the right and left thyroid aspiration. Clinical correlation and follow-up is recommended to determine if further studies are warranted. [facility]# [id number] [facility]
--- NOTE | 2017-01-22 04:16 | Cardiology ---
01/15/2017 PROCEDURE: Echocardiogram. M-MODE MEASUREMENTS: Are as follows: Aortic root dimension is 2.4 cm. Aortic valve systolic opening is 1.6 cm. Left atrial dimension in systole is 4.94 cm. EP septal separation is 1.35 cm. Mitral valve E:A ratio is 1.48. LV dimension in diastole 5.4 cm and in systole 4.7 cm. Interventricular septal thickness in diastole is 1.17 cm and LV posterior wall thickness in diastole is 0.78 cm. Ejection fraction is 27%. The Doppler and color Doppler confirms the findings as mentioned above. M-MODE in 2D shows that LV dimension and segmental wall motion are normal. The left atrium is dilated and right atrium and right ventricle within normal range. All the chambers are normal in dimension. All the valves are normal in thickness and motion in diastole and in systole. Doppler and color Doppler shows that there is left ventricular outflow tract systolic velocity V-max is 1.24 m/sec. Aortic valve V-max is 1.74 m/sec. Aortic valve pressure gradient is 12.2 mmHg. Aortic regurgitation PHT is 737 m/sec. Aortic valve V-max area ____ is 2.07 square cm. The left ventricular systolic ejection fraction is 27%. The Doppler and color Doppler also shows that there is 2+ mitral, aortic, tricuspid, and pulmonic valve regurgitation. CONCLUSION: 1. LV is normal in dimension with global hypokinesia with ejection fraction about 27%. 2. Left ventricular hypertrophy present. 3. Mitral valve annulus is slightly sclerotic. 4. ____. There is dilated right atrium, right ventricle, and left atrium suggestive of chronic dilated cardiomyopathy ____ further findings as mentioned above. JOB# [id number]
--- NOTE | 2017-01-25 01:06 | Discharge Summary ---
DATE OF DISCHARGE: 01/18/2017 DISCHARGE DIAGNOSES: 1. Atrial fibrillation. 2. Hypertension. 3. Congestive heart failure. 4. ____. 5. Hypothyroidism. HOSPITAL COURSE: The patient is a 52-year-old female who presented to [facility] ____ chest pain. The patient ____ atrial fibrillation, CHF, acute myocardial infarction, hypertension, diabetes mellitus, hyponatremia, ____, hypothyroidism. The patient was admitted to ICU and transferred to telemetry unit. Consultation was obtained from Cardiology from Dr. Cindy Bruner. Endocrine consultation by Dr. Blanchard. The patient had multiple ____ test done. The patient ____ secondary to thyroid abnormalities. After clearance by ____ Services, the patient was discharged. JOB# [id number]
== END 2017-01-18 18:45 | disposition home or self-care (01) | DRG 140 ==
LOC: ICU 01:49 → TELE 01-16 18:59
PROVIDERS: ADMIT Preventive Medicine Preventive Medicine/Occupational Environmental Medicine; ATTEND Preventive Medicine Preventive Medicine/Occupational Environmental Medicine
PROC: 0GBG3ZX Excision of Left Thyroid Gland Lobe, Percutaneous Approach, Diagnostic (ICD-10-PCS; principal; 2017-01-18)
PROC: 0GBH3ZX Excision of Right Thyroid Gland Lobe, Percutaneous Approach, Diagnostic (ICD-10-PCS; 2017-01-18)
PROC: BG44ZZZ Ultrasonography of Thyroid Gland (ICD-10-PCS; 2017-01-18)
DX: J44.1 Chronic obstructive pulmonary disease with (acute) exacerbation (principal); I42.9 Cardiomyopathy, unspecified; E87.1 Hypo-osmolality and hyponatremia; E88.09 Other disorders of plasma-protein metabolism, not elsewhere classified; I11.0 Hypertensive heart disease with heart failure; I50.22 Chronic systolic (congestive) heart failure; E11.9 Type 2 diabetes mellitus without complications; E03.9 Hypothyroidism, unspecified; F41.9 Anxiety disorder, unspecified; F32.9 Major depressive disorder, single episode, unspecified; F17.210 Nicotine dependence, cigarettes, uncomplicated; I48.2 Chronic atrial fibrillation; F12.90 Cannabis use, unspecified, uncomplicated; Z72.89 Other problems related to lifestyle; I25.2 Old myocardial infarction; Z88.8 Allergy status to other drugs, medicaments and biological substances; Z88.5 Allergy status to narcotic agent; Z71.6 Tobacco abuse counseling
CPT/HCPCS: 36415-UA; 36600-90; 71010-TC; 72050-TC; 76536-TC; 76942-TC; 80048-TC; 80053-TC; 80061-TC; 80162-TC; 80307; 82140-TC; 82248-TC; 82306-90; 82533-90; 82803-TC; 82948-90; 83036-90; 83735-TC; 83880-TC; 84100-TC; 84436-TC; 84439-90; 84443-TC; 84479-90; 84479-TC; 84484-TC; 84550-TC; 84703-TC; 85007-TC; 85025-TC; 85027-TC; 86376-90; 88305-90; 93005; 93925-TC; 93970-TC-50; 94760; 96379; J0696; J1815; J1940; J2001; J2060; J2920; Q0162; Z7610